=== PATIENT | male | born 1970 | race Caucasian/White ===

== ENCOUNTER 2022-11-18 20:29 | Inpatient (IN) | payer BC, SELFPAY ==
[2022-11-18] VITALS (11 sets, daily range): BP systolic 101–155; BP diastolic 70–104; PULSE 67–78; RESP 14–24; TEMP 36.3; O2SAT 94–100
--- NOTE | ~2022-11-18 | XR_ITS ---
EXAMINATION: XR chest 2V Exam Date/Time: 11/18/2022 21:20 CDT HISTORY: chest pain, BOTH ARMS, [place] IN 2019 Comparison: None available. RESULT: Lines, tubes, and devices: None. Lungs and pleura: Clear. Cardiomediastinal silhouette: Unremarkable. Other: No acute osseous or upper abdominal finding. IMPRESSION: No acute cardiopulmonary process. Reviewed, dictated and finalized at location K.
--- NOTE | 2022-11-18 20:30 | ECG_ITS ---
Measurements Intervals [place] Rate: 79 P: 24 [place]: 144 QRS: -12 QRSD: 96 T: 16 QT: 390 QTc: 447 Interpretive Statements SINUS RHYTHM INFERIOR MYOCARDIAL INFARCTION , PROBABLY OLD COMPARED TO ECG 02/13/2019 07:34:38 NO SIGNIFICANT CHANGES Electronically Signed On 11-19-2022 12:20:09 CDT by Samuel Arellano M.D.
[2022-11-18 20:59] LABS: Basophils Absolute Auto 0.1 K/mm3 (0.0-0.1); Basophils Percent Auto 0.3 % (0.2-1.2); Eosinophils Absolute Auto 0.2 K/mm3 (0-0.3); Eosinophils Percent Auto 0.6 % (0-4.4); Hematocrit 43.2 % (42.0-52.0); Hemoglobin 15.4 g/dL (14.0-18.0); Immature Granulocyte Percent A 0.4 % (0-0.5); Lymphocytes Absolute Auto 10.62 K/mm3 (0.9-3.2); Lymphocytes Percent Auto 45.3 % (18.3-44.2); Mean Corpuscular HGB Conc 35.6 g/dl (32-36); Mean Corpuscular Hemoglobin 32.3 pg (26-34); Mean Corpuscular Volume 90.6 fl (80-100); Mean Platelet Volume 9.5 fl (7.4-10.4); Monocytes Absolute Auto 1.7 K/mm3 (0.1-0.6); Monocytes Percent Auto 7.2 % (2.6-8.5); Neutrophils Absolute Auto 10.8 K/mm3 (1.3-6.7); Neutrophils Percent Auto 46.2 % (45.5-73.1); Platelet Count Result 371 k/mm3 (150-375); Red Blood Count 4.77 M/mm3 (4.6-6.20); Red Cell Distribution Width 12.3 % (11.5-14.5); White Blood Count 23.4 K/mm3 (4.5-10.0)
[2022-11-18 21:12] LABS: Alanine Aminotransferase 37 U/L (6-50); Albumin Level 4.8 g/dL (3.5-5.1); Alkaline Phosphatase 50 U/L (38-126); Anion Gap 14 mmol/L (8-16); Aspartate Amino Transferase 38 U/L (17-59); Bilirubin,Total 0.9 mg/dL (0.2-1.3); Blood Urea Nitrogen 25 mg/dL (9-20); Calcium 9.2 mg/dL (8.4-10.2); Carbon Dioxide 21 mmol/L (22-30); Chloride 103 mmol/L (98-107); Estimated CRCL calculation 110 ml/min; Estimated Glomerular Filt Rate > 60; Glucose 121 mg/dL (65-110); Lipase 123 U/L (23-300); Potassium 3.4 mmol/L (3.4-5.0); Sodium 138 mmol/L (137-145)
[2022-11-18 21:13] LABS: Partial Thromboplastin Time 23.2 SECONDS (22.3-36.8); Prothrombin Time 12.3 Seconds (11.1-14.7)
[2022-11-18 21:20] LABS: Troponin I < 0.012 ng/mL (0.000-0.034)
--- NOTE | 2022-11-18 21:20 | PC.NURSE ---
Patient taken to xray from waiting room.
[2022-11-18] MEDS: NITROGLYCERIN SL 0.4 MG TABLET SUBLINGUAL (23:04)
[2022-11-18] MEDS: MORPHINE SULFATE (*CRX) 4 MG/ML INJ IV PUSH (23:04)
[2022-11-18] MEDS: ASPIRIN 81 MG CHEWABLE TABLET 324 MG PO (23:05)
--- NOTE | 2022-11-18 23:06 | ED.GENADULT ---
HPI - General Adult General Chief complaint: Chest Pain Stated complaint: Chest pain Time Seen by Provider: 11/18/22 22:40 History of Present Illness HPI narrative: Patient 52-year-old gentleman who presents the emergency department with chief complaint of chest pain. Patient reports he has prior history of cardiac disease he is and reports that he has had stents placed before in the past. Patient reports that today he had gone out to eat had a trigger to and then was at home taking his metoprolol and had sudden onset of pain in his chest. The patient does state that it is more sharp and reports that he has radiation down his left arm. Patient reports it does feel similar to whenever he had his MD in the past. Patient reports he took a single nitro at home and had no relief in his symptoms. Related Data Allergies Allergy/AdvReac Type Severity Reaction Status Date / Time No Known Allergies Allergy Unverified 10/06/13 15:48 Review of Systems Review of Systems: A 10 system review of systems was completed on the patient and is negative except for what is stated in the HPI. Nursing and ancillary documentation was reviewed. [facility] Family History Family History Father Family history of heart disease in male family member before age 55 Grandparent Family history of heart disease in male family member before age 55 Diabetes mellitus Social History Social History Smoking status: Never smoker Alcohol intake: current Exam Narrative: GENERAL: Well-appearing, well-nourished, and in no acute distress. HEAD: Normocephalic, atraumatic. EYES: PERRLA and EOMI. ENT: Nares clear, no rhinorrhea or epistaxis. Mucous membranes moist. NECK: Supple. CHEST: Clear to auscultation. No respiratory distress. HEART: Regular rate and rhythm. No murmur heard. Normal peripheral pulses. ABDOMEN: Soft, nontender, nondistended, normal active bowel sounds. EXTREMITIES: Normal range of motion. No edema. SKIN: Warm, dry, no rash. NEURO: No focal deficits. Alert and oriented x3. PSYCH: Normal mood and affect. Course Vital Signs Vital signs: Vital Signs Temperature 36.3 C L 11/18/22 20:37 Pulse Rate 73 11/18/22 20:37 Respiratory Rate 18 11/18/22 20:37 Blood Pressure 101/70 11/18/22 20:37 Pulse Oximetry 98 11/18/22 20:37 Oxygen Delivery Room Air 11/18/22 20:37 Temperature 36.3 C L 11/18/22 20:37 Pulse Rate 68 11/19/22 01:32 Respiratory Rate 21 H 11/19/22 01:32 Blood Pressure 147/86 H 11/19/22 01:32 Pulse Oximetry 96 11/19/22 01:32 Oxygen Delivery Room Air 11/18/22 20:37 Medical Decision Making MDM Narrative Medical decision making narrative: Differential diagnosis includes STEMI, non-STEMI, unstable angina, Initial EKG showed sinus rhythm rate of [address] elevation or ST depression Initial troponin was less than 0.012 3-hour delta troponin is 0.309 Due to this the patient has ruled in for non-STEMI. Laboratory studies otherwise showed significant leukocytosis with a white count of 23.4. Patient does appear to have a baseline elevated white blood cell count from his previous encounters. Patient shows no signs of infection at this time. Chest x-ray showed no focal infiltrate Patient was started on heparin drip also received nitroglycerin in the emergency department as well as pain control. Patient is still having some active pain Case was discussed with both the hospitalist and cardiology who are aware of the patient. Vital Signs Vital Signs: Vital Signs Temperature 36.3 C L 11/18/22 20:37 Pulse Rate 73 11/18/22 20:37 Respiratory Rate 18 11/18/22 20:37 Blood Pressure 101/70 11/18/22 20:37 Pulse Oximetry 98 11/18/22 20:37 Oxygen Delivery Room Air 11/18/22 20:37 Temperature 36.3 C L 11/18/22 20:37 Pulse Rate 68 11/19/22 01:32 Respi
[2022-11-18] MEDS: ONDANSETRON INJ 4 MG/2 ML VIAL IV PUSH (23:28)
[2022-11-19] VITALS (62 sets, daily range): BP systolic 117–166; BP diastolic 65–107; PULSE 61–86; RESP 12–23; TEMP 36.2–37.3; O2SAT 88–99; BMI 37.3
--- NOTE | 2022-11-19 | ECHO_ITS ---
Patient Info Name: Lobito Cassidy Age: 52 years : 1970 Gender: Male Ht: 70 in Wt: 240 lbs BSA: 2.36 m2 HR: 78 bpm BP: 131 / 91 mmHg Heart Rhythm: Sinus Rhythm Technical Quality: Fair Exam Date: 11/19/2022 1:11 PM [facility] Patient Status: Inpatient Admit Date: 11/19/2022 Staff Ordering Physician: Samuel Arellano MD ([email or web address]) Customer Solutions Coordinator: Radha Morgan RDCS Attending Provider: Jordana Kim DO Referring Physician: Adan RITTER; Exam Type: CA echo dop color flow w con Study Info Indications - NSTEMI Complete two-dimensional, color flow and Doppler transthoracic echocardiogram is performed with contrast to opacify the left ventricle and to improve the deliniation of the left ventricle endocardial borders. Summary 1. Left ventricular chamber dimension is normal. 2. Left ventricular systolic function is normal, estimated at 65-70%. 3. Right ventricular systolic function is normal. 4. Left atrial chamber dimension is mildly enlarged. 5. There is mild tricuspid valve regurgitation. Left Ventricle Left ventricular chamber dimension is normal. Left ventricular systolic function is normal, estimated at 65-70%. There is no increased left ventricular wall thickness. Right Ventricle Right ventricular chamber dimension is normal. Right ventricular systolic function is normal. Left Atria Left atrial chamber dimension is mildly enlarged. Right Atria Right atrial chamber dimension is normal. Atrial Septum Intact interatrial septum visualized by color flow imaging. Aortic Valve The aortic valve is not well visualized. There is no aortic valve stenosis. There is no aortic valve regurgitation. There is mild aortic valve calcification. Pulmonic Valve The pulmonic valve is not well visualized. Mitral Valve The mitral valve has normal leaflets. There is no mitral valve stenosis. There is trace mitral valve regurgitation. Tricuspid Valve There is mild tricuspid valve regurgitation. Pericardium/Pleural There is trivial pericardial effusion. Inferior Vena Cava Normal inferior vena cava with >50% collapse upon inspiration consistent with normal right atrial pressure, 3 mmHg. Aorta The aortic root size at the sinus of Valsalva is normal. Left Ventricular Outflow Tract Name Value Normal LVOT 2D LVOT Diameter 2.15 cm LVOT Doppler LVOT Peak Gradient 4 mmHg LVOT Mean Gradient 2 mmHg LVOT VTI 22.13 cm LVOT VTI/AV VTI Ratio 0.67 LVOT Stroke Volume 80.15 ml LVOT CO 15.99 l/min LVOT CI 6.79 L/min/m2 Pulmonic Valve Name Value Normal PV Doppler PV Peak Gradient
[2022-11-19] MEDS: HYDROmorphone HCL INJ (*CRX) 1 MG/ML SYR IV PUSH ×3 (00:17→06:27)
[2022-11-19 01:04] LABS: Troponin I 0.309 ng/mL (0.000-0.034)
[2022-11-19] MEDS: HEPARIN SODIUM 5,000 UNITS/ML VIAL 4000 UNITS IV PUSH ×2 (01:10→08:25)
[2022-11-19] MEDS: NITROGLYCERIN OINTMENT 1 INCH DOSE TRANSDERM ×4 (01:31→23:53)
[2022-11-19] MEDS: HEPARIN SOD/D5W 100 UNITS/ML 25,000 UNITS/250 ML BAG 10 UNITS IV CONT (01:31)
--- NOTE | 2022-11-19 03:06 | ADMGEN ---
This patient, Lobito Cassidy, was admitted to IMU Room 209-01. Patient/family oriented to hospital policies and general routines including ID bracelet, bed and alarms, visiting hours, pain management, procedures, bathroom and other care routines, personal items, smoking policy, room service/diet, and visiting hours. Information on how to activate the Rapid Response Team has been discussed. Patient/Family are encouraged to report perceived risks to care and to ask questions if they do not understand what they are told or what they should do.
--- NOTE | 2022-11-19 03:51 | ECG_ITS ---
Measurements Intervals [place] Rate: 66 P: 38 [place]: 175 QRS: -23 QRSD: 105 T: 25 QT: 435 QTc: 457 Interpretive Statements SINUS RHYTHM BORDERLINE LEFT AXIS DEVIATION [QRS AXIS < -20] INTERPRETATION BASED ON A DEFAULT AGE OF 40 YEARS COMPARED TO ECG 11/18/2022 20:33:13 NO SIGNIFICANT CHANGES Electronically Signed On 11-19-2022 12:23:00 CDT by Samuel Arellano M.D.
[2022-11-19] MEDS: MORPHINE SULFATE (*CRX) 2 MG/ML INJ IV PUSH ×2 (04:26→05:18)
[2022-11-19] MEDS: ONDANSETRON INJ 4 MG/2 ML VIAL IV PUSH ×3 (04:26→17:57)
[2022-11-19] MEDS: METOPROLOL TARTRATE INJ 5 MG/5 ML VIAL 2.5 MG IV PUSH (05:57)
--- NOTE | 2022-11-19 07:06 | PM.IMHP ---
H&P: HPI History of Present Illness Date/Time: 11/19/22 07:06 Chief Complaint: Chest pain ?similar to my last heart attack? Narrative: Patient is a 52-year-old male with a past medical history of essential hypertension, hypercholesterolemia and premature coronary artery disease requiring angioplasty and subsequent placement of a 5 by 38 drug-eluting stent to the mid RCA followed by subsequent appointment of 5 x 13 more proximal stent to the previous placed stent in overlapping fashion January 2019 for STEMI who presented to the ER via private vehicle with chest pain. The patient reports that he and his had just had sexual relations and he suddenly developed severe precordial chest pain that was similar to when he had his prior heart attack. He reports the only difference was that this pain was not quite as intense and it was accompanied by pain down in his forearms bilaterally. The pain is accompanied by diaphoresis, chills and lightheaded sensation. He also reports feeling intermittently flushed in controls engineer the face. He took a nitroglycerin 30 minute prior to arrival to the ER with no relief of his chest pain. The patient reports that he does give muscle aches when he takes his Lipitor but this pain is nothing like his generalized muscle aches. He reports he has not had pain like this since he had his last heart attack. He denies having any orthopnea, paroxysmal nocturnal dyspnea or lower extremity edema. He does snore quite vigorously and does wake himself up with his snoring. He will also bite his tongue in his sleep. He has been noted to have some episodes of apnea by nursing staff in his stop Bang score was 6 indicating is high risk for sleep apnea. He reports that his appetite and his weight has been stable. His metoprolol and atorvastatin had not been filled since July. He states that he always has extra metoprolol and atorvastatin because he has trouble remembering to take his medications consistently. However he has been taking his medications regularly since his last visit to the motor pool driver about a week ago. He reports that the muscle aches he was given from a statins are quite as bad since a decrease his statin dose to 40 mg. However he was told that his cholesterol levels are climbing so he has been trying to be visual in over the last week and eating a more consistent diet. He reports that he has a very physical job and does not have chest pain when he is at work. Echocardiogram in 2019 demonstrated modestly hyponatremic inferior wall with ejection fraction of 55%. Review of Systems Review of Systems: 12 systems were reviewed with pertinent positives and negatives per HPI. Except as documented in the HPI, all other systems were reviewed and are negative. 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), left shoulder STEMI (ST elevation myocardial infarction) (02/2019) Surgical History Surgical History (Updated 11/19/22 @ 07:21 by Jordana Kim DO) History of cardiac catheterization With cardiac angioplasty of the very large RCA 02/2019 with patient having persistent chest pain in the patient had to be taken back to the optical laboratory manager the same day for placement of 2 large drug-eluting stents that were still not quite large enough for the patient's extremely large RCA Family History Family History Father Family history of heart disease in male family member before age 55 Grandparent Family history of heart disease in male family member before age 55 Diabetes mellitus Social History Social History (Updated 11/19/22 @ 07:23 by Jordana Kim DO) Social History: Patient lives in [facility] with his . He denies any tobacco use. He uses marijuana. He drinks about a 12 pack of
[2022-11-19 07:35] LABS: Basophils Percent Auto 0.1 % (0.2-1.2); Hematocrit 42.7 % (42.0-52.0); Hemoglobin 15.1 g/dL (14.0-18.0); Immature Granulocyte Absolute 0.09 K/mm3 (0.00-0.031); Immature Granulocyte Percent A 0.6 % (0-0.5); Lymphocytes Absolute Auto 1.63 K/mm3 (0.9-3.2); Lymphocytes Percent Auto 10.3 % (18.3-44.2); Mean Corpuscular HGB Conc 35.4 g/dl (32-36); Mean Corpuscular Hemoglobin 32.2 pg (26-34); Mean Platelet Volume 9.6 fl (7.4-10.4); Monocytes Absolute Auto 0.5 K/mm3 (0.1-0.6); Monocytes Percent Auto 2.9 % (2.6-8.5); Neutrophils Absolute Auto 13.7 K/mm3 (1.3-6.7); Neutrophils Percent Auto 86.1 % (45.5-73.1); Platelet Count Result 287 k/mm3 (150-375); Red Blood Count 4.69 M/mm3 (4.6-6.20); Red Cell Distribution Width 12.3 % (11.5-14.5); White Blood Count 15.9 K/mm3 (4.5-10.0)
[2022-11-19 07:47] LABS: INR 1.1; Partial Thromboplastin Time 25.5 SECONDS (22.3-36.8); Prothrombin Time 13.5 Seconds (11.1-14.7)
[2022-11-19 07:55] LABS: Anion Gap 9 mmol/L (8-16); Blood Urea Nitrogen 25 mg/dL (9-20); Calcium 8.8 mg/dL (8.4-10.2); Carbon Dioxide 24 mmol/L (22-30); Chloride 105 mmol/L (98-107); Estimated CRCL calculation 138 ml/min; Estimated Glomerular Filt Rate > 60; Glucose 137 mg/dL (65-110); Potassium 3.9 mmol/L (3.4-5.0); Sodium 138 mmol/L (137-145)
[2022-11-19] MEDS: METOPROLOL SUCCINATE EXT REL 25 MG TABCR PO (08:27)
[2022-11-19] MEDS: ASPIRIN 81 MG CHEWABLE TABLET PO (08:27)
[2022-11-19] MEDS: ATORVASTATIN 40 MG TABLET PO (08:27)
--- NOTE | 2022-11-19 10:09 | PM.CNCAR ---
Assessment and Plan Assessment and plan (1) Acute non-ST elevation myocardial infarction (NSTEMI): Code(s): I21.4 - Non-ST elevation (NSTEMI) myocardial infarction Status: Acute (2) Coronary artery disease: Code(s): I25.10 - Atherosclerotic heart disease of [place] coronary artery without angina pectoris Status: Acute (3) Essential hypertension: Code(s): I10 - Essential (primary) hypertension Status: Acute (4) Hyperlipidemia: Qualifiers: Hyperlipidemia type: pure hypercholesterolemia Qualified Code(s): E78.00 - Pure hypercholesterolemia, unspecified Code(s): E78.5 - Hyperlipidemia, unspecified Status: Acute Plan Loaded with ASA 324mg. Continue with ASA 81mg once daily. Loaded with 600mg of Plavix this morning. Continue with 75mg once daily of Plavix. Increase his statin from 40mg to 80mg. Continue with beta aspen. Cardiac cath this AM. Further recommendations pending results of cardiac cath. History of Present Illness History of Present Illness Consult date/time: 11/19/22 10:09 Requesting physician: Jersey Anaya MD Consult reason: chest pain and Other (NSTEMI) Reason For Visit: nstemi Narrative: We are consulted for NSTEMI. This is a 52-year-old male with a history of coronary artery disease with a STEMI in 01/2019 s/p PCI to the RCA with BELKIS x 1 who presented to [place] [facility] with chest pain. Chest pain began around 8PM on 11/18/2022. Admitted to the hospital with an NSTEMI. Had radiation of the pain down to his arm. EKG without ischemic changes. Initial troponin negative. However, repeat troponins 0.309 --> 1.730 --> 5.7. Patient reports his chest pain improved with medical management with pain medications. Has mild chest pain this morning. Hemodynamically stable. Patient supposed to be on Brilinta as an outpatient, however, states he stopped it several days ago. Has been taking ASA but misses a dose occasionally. Follows with Dr. La in clinic. Last seen a week ago. 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), left shoulder STEMI (ST elevation myocardial infarction) (02/2019) Surgical History Surgical History History of cardiac catheterization With cardiac angioplasty of the very large RCA 02/2019 with patient having persistent chest pain in the patient had to be taken back to the chemical lab supervisor the same day for placement of 2 large drug-eluting stents that were still not quite large enough for the patient's extremely large RCA Family History Family History Father Family history of heart disease in male family member before age 55 Grandparent Family history of heart disease in male family member before age 55 Diabetes mellitus Social History Social History Social History: Patient lives in [facility] with his . He denies any tobacco use. He uses marijuana. He drinks about a 12 pack of alcohol a week. 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 Code status: Full code Surrogate decision maker: Maria Teresa () Smoking status: Never smoker Second hand tobacco smoke exposure: No Alcohol intake: current Drinks per week: 2 Substance use: current Substance use type: marijuana Last use: 11/18/22 Lack of Transportation: No Lack of Food: Never True Current Housing: I Have Housing Concerned About Future Housing: No Difficulty Paying Gas/Electric Bills: No Difficulty Paying for Meds: No Currently Unemployed: No Education: High School Diploma/GED Difficulty w/ Chi
--- NOTE | 2022-11-19 10:23 | WPDMODSED ---
Moderate Sedation Note-Pt Data Patient Data Diagnosis: NSTEMI Present Complaint: Chest pain Procedure to be performed/Plan: Coronary angiography, LHC, +/- PCI Allergies Allergy/AdvReac Type Severity Reaction Status Date / Time No Known Allergies Allergy Unverified 10/06/13 15:48 Home Medications Medication Instructions Recorded Confirmed Type aspirin 81 mg tablet,delayed 81 mg PO DAILY 11/19/22 11/19/22 History release atorvastatin 40 mg tablet 40 mg PO DAILY 11/19/22 11/19/22 History metoprolol succinate 25 mg 25 mg PO DAILY 11/19/22 11/19/22 History tablet,extended release 24 hr Current Medications: Active Medications Aspirin (Aspirin 81 Mg Chewable Tablet) 81 mg PO DAILY@0800 [facility] Last Admin: 11/19/22 08:27 Dose: 81 mg Aspirin (Aspirin 81 Mg Enteric Tablet) 81 mg PO DAILY [facility] Last Admin: 11/19/22 08:19 Dose: Not Given Atorvastatin Calcium (Atorvastatin 40 Mg Tablet) 80 mg PO DAILY [facility] Heparin Sodium (Porcine) (Heparin Sodium 5,000 Units/Ml Vial) 4,000 units IV PUSH PRN PRN PRN Reason: aPTT less than 55 seconds Last Admin: 11/19/22 08:25 Dose: 4,000 units Heparin Sodium (Porcine) (Heparin Sodium 5,000 Units/Ml Vial) 3,500 units IV PUSH PRN PRN PRN Reason: aPTT 55 - 70 seconds Heparin Sodium/Dextrose (Heparin Sodium/D5w 100 Units/Ml) 25,000 units in 250 mls @ 14 mls/hr IV CONT .[id number] [facility]; Protocol Last Titration: 11/19/22 08:23 Dose: 1,400 units/hr, 14 mls/hr Metoprolol Succinate (Metoprolol Succinate Ext Rel 25 Mg Tabcr) 25 mg PO DAILY [facility] Last Admin: 11/19/22 08:27 Dose: 25 mg Morphine Sulfate (Morphine Sulfate (*Crx) 4 Mg/Ml Inj) 4 mg IV PUSH Q2H PRN PRN Reason: Chest Pain Nitroglycerin (Nitroglycerin Ointment 1 Inch Dose) 1 inch TRANSDERM Q6HR [facility] Last Admin: 11/19/22 05:57 Dose: 1 inch Ondansetron HCl (Ondansetron Inj 4 Mg/2 Ml Vial) 4 mg IV PUSH Q6H PRN PRN Reason: Nausea And Vomiting Last Admin: 11/19/22 04:26 Dose: 4 mg Sedation/Anesthesia: No previous sedation/anesthesia problems (including family history). 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 Separation of muscle (nontraumatic), left shoulder STEMI (ST elevation myocardial infarction) (02/2019) Surgical History Surgical History History of cardiac catheterization With cardiac angioplasty of the very large RCA 02/2019 with patient having persistent chest pain in the patient had to be taken back to the cath laboratory technician the same day for placement of 2 large drug-eluting stents that were still not quite large enough for the patient's extremely large RCA Family History Family History Father Family history of heart disease in male family member before age 55 Grandparent Family history of heart disease in male family member before age 55 Diabetes mellitus Social History Social History Social History: Patient lives in [facility] with his . He denies any tobacco use. He uses marijuana. He drinks about a 12 pack of alcohol a week. 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 Code status: Full code Surrogate decision maker: Maria Teresa () Smoking status: Never smoker Second hand tobacco smoke exposure: No Alcohol intake: current Drinks per week: 2 Substance use: current Substance use type: marijuana Last use: 11/18/22 Lack of Transportation: No Lack of Food: Never True Current Housing: I Have Housing Concerned About Future Housing: No Difficulty Paying Gas/Electric Bills: No Difficulty Paying for Meds: No Currently Unemployed: No Education: High School Diploma/GED Difficulty w/ Childcare or Family Care: No Spiritual care concerns: No Mod Sed
--- NOTE | 2022-11-19 10:26 | WPDCARDPROC ---
Cardiac Cath Procedure Note Date of procedure:: 11/19/22 Performing physician:: CATHETERIZATION LABORATORY REPORT Procedure Date: 11/19/2022 Planning Lead: Samuel Arellano M.D., [facility]? Referring Physician: Samuel Arellano M.D. ? Anesthesia: Versed and Fentanyl were ordered and given in my presence at 08:59, procedure ended at 10:04. Supervision of nurse monitored moderate sedation with Versed and Fentanyl was provided for 65 minutes. Total of Versed 2mg and Fentanyl 50mcg were administered by the Construction Job Titles RN Klaudia Rowley. Pre-op Diagnosis: NSTEMI Post-op Diagnosis: Occluded OM-1 vessel. Unsuccessful attempt at reopening the vessel despite multiple balloon inflations. Widely patent RCA stents Non-obstructive disease of the LAD that is angiographically unchanged compared to prior cath from 2018 Procedure(s): 1. Moderate sedation 2. Ultrasound-guided access of the right radial artery 3. Coronary angiography 4. Balloon angioplasty of the OM-1 vessel, unable to reopen the vessel. Access Site: Right radial artery Brief History and Clinical Indications: Patient is a 52-year-old male who is referred for cardiac cath for NSTEMI. All risks, benefits and alternatives to left heart catheterization with or without percutaneous coronary intervention was discussed at length with the patient. Risk of complications including but not limited to bleeding, infection, arrhythmia, stroke, worsening kidney function, blood loss, groin hematoma, limb loss, emergency coronary artery bypass grafting, and even were discussed with the patient and all questions were answered. The patient understood and wished to proceed. Time out called, patient name, date of , medical record number, allergies, procedure performed, identify Planning Lead, patient and staff member concurred with accurate data, procedure carried on. Findings: LEFT HEART CATHETERIZATION FINDINGS: 1. Left main: Large caliber vessel. The left main has an ostial 20% stenosis, which is angiographically unchanged compared to prior cath. 2. Left anterior descending: The LAD is a large caliber vessel with diffuse 20% disease in its proximal-mid portion. The mid LAD has mild 40-50% stenosis. Remainder of the LAD has mild luminal irregularities. The diagonal vessels are without any significant obstructive angiographic disease. There is a large caliber Ramus without any obstructive disease. 3. Left circumflex: The proximal LCX has mild diffuse disease. The AV groove LCX is diminutive. The OM vessel is completely occluded in its proximal section. 4. Right coronary artery: The RCA is the dominant vessel. Widely patent stents are seen in the proximal-mid RCA. Diffuse mild disease in the RCA. The RPLV is a large caliber vessel with mild luminal irregularities. The RPDA is a large caliber vessel with a mild 30-40% stenosis in its mid portion. Description of Procedure: Informed consent signed and placed in the chart. Patient transferred to greens laborer room. Prepped and draped in usual sterile fashion. 2% lidocaine injected subcutaneously in right wrist area. 22-gauge venipuncture catheter used to access the right radial artery with the Seldinger technique. 6-FR slender sheath placed in right radial artery. Nitroglycerine and Verapamil were given intraarterial through the sheath. Versacore wire advanced under fluoroscopy 5F Tig 4 diagnostic catheter engaged Left Main Coronary Artery. 5F Tig 4 diagnostic catheter engaged Right Coronary Artery Multiple orthogonal angiogram obtained and reviewed Decision made to proceed with PCI of the OM. Angiomax used for anticoagulation. 6F CLS 3.0 guide catheter was used to intubate the LM. The LCX was a difficult vessel to wire due to the angulation of its takeoff. 0.014 [place] coronary wire was eventually advanced into the distal OM. Balloon angioplasty done with a 2.0mm x 15mm balloon. Despite multiple balloon inflations up to 2.3-2.5mm, unable to o
[2022-11-19] MEDS: EPTIFIBATIDE 0.75 MG/ML 75 MG/100 ML VIAL 18.88 MG IV CONT ×3 (10:30→20:11)
[2022-11-19] MEDS: MORPHINE SULFATE (*CRX) 4 MG/ML INJ IV PUSH ×5 (11:10→21:11)
[2022-11-19 11:36] LABS: Hemoglobin A1C 5.4 % (<5.7)
[2022-11-19 11:40] LABS: Cholesterol 132 mg/dL (0-200); HDL Direct 36 mg/dL; Triglycerides 89 mg/dL (<150)
[2022-11-19 11:51] LABS: LDL Cholesterol Direct 75 mg/dL
[2022-11-19] MEDS: SODIUM CHLORIDE 0.9% IV 1,000 ML 125 ML IV CONT (13:45)
[2022-11-19] MEDS: PERFLUTREN LIPID MICROSPHERES 1.5 ML VIAL DILUTED TO 10 ML TOTAL VOLUME IV PUSH (13:50)
--- NOTE | 2022-11-19 14:52 | PM.IMPN ---
Progress Note: A&P Assessment and Plan (1) Acute non-ST elevation myocardial infarction (NSTEMI): Code(s): I21.4 - Non-ST elevation (NSTEMI) myocardial infarction Status: Acute Assessment and Plan: The patient is is having persistent chest pain with elevated troponins despite nitropaste, morphine and Dilaudid. The patient did report that metoprolol given IV 2.5 mg seemed to help his pain somewhat. He reports his pain is still a 4/10 in intensity but better than his 9-10/10 pain that he was having prior to arrival. Cardiology was contacted regarding the patient's persistent pain and nursing staff tells me that the patient is likely to go to cardiac catheterization technologist this morning. Heart cath shows - Occluded OM-1 vessel. Unsuccessful attempt at reopening the vessel despite multiple balloon inflations. Widely patent RCA stents Non-obstructive disease of the LAD that is angiographically unchanged compared to prior cath from 2019 Pt had urgent heart cath this am see results above D/ W cardiology continue with medical treatment Integrilin drip for 18 hours. Morphine for pain, and Lopressor. continue to watch in imu for any further chest pains (2) Hyperlipidemia: Qualifiers: Hyperlipidemia type: pure hypercholesterolemia Qualified Code(s): E78.00 - Pure hypercholesterolemia, unspecified Code(s): E78.5 - Hyperlipidemia, unspecified Status: Acute Assessment and Plan: Continue Lipitor 40 mg daily. (3) Essential hypertension: Code(s): I10 - Essential (primary) hypertension Status: Acute Assessment and Plan: Continue home metoprolol. (4) Snoring: Code(s): R06.83 - Snoring Status: Acute Assessment and Plan: Would benefit from outpatient polysomnogram. Plan Patient has been admitted as inpatient status. He will require greater than 2 midnight stay for stabilization of his cardiac ischemia. Subjective Date/time seen: 11/19/22 14:52 52-year-old male with a past medical history of essential hypertension, hypercholesterolemia and premature coronary artery disease requiring angioplasty and subsequent placement of a 5 by 38 drug-eluting stent to the mid RCA followed by subsequent appointment of 5 x 13 more proximal stent to the previous placed stent in overlapping fashion January 2019 for STEMI who presented to the ER via private vehicle with chest pain.? The patient reports that he and his had just had sexual relations and he suddenly developed severe precordial chest pain that was similar to when he had his prior heart attack. Pt admitted with NSTEMI PT seen by cardiology had urgent Cardiac cath showing Occluded OM-1 vessel. Unsuccessful attempt at reopening the vessel despite multiple balloon inflations. Widely patent RCA stents Non-obstructive disease of the LAD that is angiographically unchanged compared to prior cath from 2019 Pt seen in the room, resting on Integrilin drip, denies any chest pain currently Review of Systems Review of Systems: No Chest pain Exam Narrative: Obese Const: Other: Alert awake HENMT: Other: Mucous membranes are tacky, markedly crowded posterior oropharynx no oral pharyngeal erythema Resp: Other: Clear to auscultation bilaterally Cardio: Other: Regular rate, regular rhythm, 2+ bilateral radial pedal pulses GI: Other: Soft, nontender, nondistended, positive bowel sounds Skin: Other: Extensive tattoos across bilateral arms Neuro: Other: Alert oriented, speech is clear, no facial asymmetry, no localizing neurologic deficits noted during conversation Extrem: Other: No clubbing, cyanosis or edema Objective Data Vital Signs Vital Signs: Vital Signs - 24 hr 11/18/22 20:37 11/18/22 22:32 11/18/22 22:33 Temperature 36.3 C L Pulse Rate 73 78 Pulse Rate [Bilateral Pedal (Dorsalis Pedis)] Respiratory Rate 18 24 H Blood Pressure 101/70 154/104 H Pulse Oximetry 98 100 99 Oxygen
[2022-11-19] MEDS: METOCLOPRAMIDE HCL INJ 10 MG/2 ML VIAL IV PUSH (20:53)
[2022-11-19] MEDS: FAMOTIDINE 20 MG/2 ML VIAL IV PUSH (21:41)
[2022-11-20] VITALS (7 sets, daily range): BP systolic 118–126; BP diastolic 72–78; PULSE 65–74; RESP 14–20; TEMP 36.6–36.7; O2SAT 93–98
[2022-11-20] MEDS: MORPHINE SULFATE (*CRX) 4 MG/ML INJ IV PUSH ×3 (01:34→08:35)
[2022-11-20] MEDS: EPTIFIBATIDE 0.75 MG/ML 75 MG/100 ML VIAL 18.88 MG IV CONT (01:34)
[2022-11-20 05:21] LABS: Basophils Percent Auto 0.2 % (0.2-1.2); Eosinophils Percent Auto 0.1 % (0-4.4); Hematocrit 38.9 % (42.0-52.0); Hemoglobin 13.9 g/dL (14.0-18.0); Immature Granulocyte Absolute 0.12 K/mm3 (0.00-0.031); Immature Granulocyte Percent A 0.6 % (0-0.5); Lymphocytes Absolute Auto 3.17 K/mm3 (0.9-3.2); Lymphocytes Percent Auto 15.9 % (18.3-44.2); Mean Corpuscular HGB Conc 35.7 g/dl (32-36); Mean Corpuscular Hemoglobin 32.3 pg (26-34); Mean Corpuscular Volume 90.3 fl (80-100); Mean Platelet Volume 9.7 fl (7.4-10.4); Monocytes Absolute Auto 1.8 K/mm3 (0.1-0.6); Monocytes Percent Auto 8.9 % (2.6-8.5); Neutrophils Absolute Auto 14.8 K/mm3 (1.3-6.7); Neutrophils Percent Auto 74.3 % (45.5-73.1); Platelet Count Result 270 k/mm3 (150-375); Red Blood Count 4.31 M/mm3 (4.6-6.20); Red Cell Distribution Width 12.4 % (11.5-14.5); White Blood Count 19.9 K/mm3 (4.5-10.0)
[2022-11-20] MEDS: NITROGLYCERIN OINTMENT 1 INCH DOSE TRANSDERM (05:56)
[2022-11-20] MEDS: METOCLOPRAMIDE HCL INJ 10 MG/2 ML VIAL 5 MG IV PUSH (08:34)
[2022-11-20] MEDS: METOPROLOL SUCCINATE EXT REL 50 MG TABCR PO (08:36)
[2022-11-20] MEDS: CLOPIDOGREL BISULFATE 75 MG TABLET PO (08:36)
[2022-11-20] MEDS: FAMOTIDINE 20 MG/2 ML VIAL IV PUSH (08:36)
[2022-11-20] MEDS: ATORVASTATIN 40 MG TABLET 80 MG PO (08:36)
[2022-11-20] MEDS: ASPIRIN 81 MG ENTERIC TABLET PO (08:47)
--- NOTE | 2022-11-20 11:33 | PM.PNCARD ---
Progress Note: A&P Assessment and Plan (1) Acute non-ST elevation myocardial infarction (NSTEMI): Code(s): I21.4 - Non-ST elevation (NSTEMI) myocardial infarction Status: Acute (2) Hyperlipidemia: Qualifiers: Hyperlipidemia type: pure hypercholesterolemia Qualified Code(s): E78.00 - Pure hypercholesterolemia, unspecified Code(s): E78.5 - Hyperlipidemia, unspecified Status: Acute (3) Essential hypertension: Code(s): I10 - Essential (primary) hypertension Status: Acute (4) Coronary artery disease: Code(s): I25.10 - Atherosclerotic heart disease of [place] coronary artery without angina pectoris Status: Acute Plan Cardiac cath showed: Occluded OM-1 vessel. Unsuccessful attempt at reopening the vessel despite multiple balloon inflations. Widely patent RCA stents Non-obstructive disease of the LAD that is angiographically unchanged compared to prior cath from 2019 Treated patient medically with Integrilin drip for 18 hours, now completed. Echocardiogram showed LVEF 65-70%, no significant valvular disease. Continue ASA 81mg once daily, Plavix 75mg once daily. Will need DAPT for at least 1 year. Continue Atorvastatin 80mg QD. Continue Toprol 50mg QD. Okay for patient to be discharged home today from my standpoint. Patient's case was discussed with Hospitalist, Dr. Mojica. Subjective Date/time seen: 11/20/22 11:33 Interval history: Reason for visit: NSTEMI HPI: This is a 52-year-old male with a history of coronary artery disease with a STEMI in 01/2019 s/p PCI to the RCA with BELKIS x 1 who presented to [place] ER with chest pain. Chest pain began around 8PM on 11/18/2022. Admitted to the hospital with an NSTEMI. Had radiation of the pain down to his arm. EKG without ischemic changes. Initial troponin negative. However, repeat troponins 0.309 --> 1.730 --> 5.7. Patient reports his chest pain improved with medical management with pain medications. Has mild chest pain this morning. Hemodynamically stable. Patient supposed to be on Brilinta as an outpatient, however, states he stopped it several days ago. Has been taking ASA but misses a dose occasionally. Follows with Dr. La in clinic. Last seen a week ago. Date of service 11/20: No acute events overnight. Feels better. Review of Systems Review of Systems: 8 point ROS obtained. Negative, unless stated in HPI. Exam Const: General: comfortable and no acute distress HENMT: Mouth: Yes moist mucous membranes Eyes: General: appearance normal, both eyes and all related structures Sclera: sclerae normal Neck: Neck: supple Resp: Effort & Inspection: normal respiratory effort Auscultation: clear to auscultation bilaterally Cardio: Rate: regular rate Rhythm: regular rhythm Heart sounds: no murmurs GI: GI Palp: Yes Soft to palpation Skin: General skin exam: normal color Neuro: Speech: normal speech Extrem: General: normal to inspection Psych: Mental Status: mental status grossly normal Affect: normal affect Objective Data Vital Signs Vital Signs: Vital Signs - 24 hr 11/19/22 11:45 11/19/22 11:45 11/19/22 12:00 Temperature Pulse Rate 86 70 Pulse Rate [Bilateral Pedal (Dorsalis Pedis)] 86 Respiratory Rate 15 16 Blood Pressure 153/93 H 150/100 H Pulse Oximetry 96 98 Oxygen Delivery Nasal Cannula Nasal Cannula Oxygen Flow Rate 2 2 11/19/22 12:00 11/19/22 12:15 11/19/22 12:15 Temperature Pulse Rate 70 Pulse Rate [Bilateral Pedal (Dorsalis Pedis)] 70 70 Respiratory Rate 15 Blood Pressure 151/85 H Pulse Oximetry 96 Oxygen Delivery Nasal Cannula Oxygen Flow Rate 2 11/19/22 12:45 11/19/22 12:45 11/19/22 13:07 Temperature Pulse Rate 71 Pulse Rate [Bilateral Pedal (Dorsalis Pedis)] 71 71 Respiratory Rate 15 Blood Pressure 158/89 H Pulse Oximetry 96 Oxygen Delivery Nasal Cannula Oxygen Flow Rate 2 11/19/22 13:07 11/19/22 13:15 11/19/22 13:1
--- NOTE | 2022-11-20 11:39 | PM.DS ---
DS: Admitting Diagnosis Discharge Date 11/20/22 Admitting Diagnosis Chest pain/NSTEMI DS: Discharge Diagnosis Discharge Diagnosis (1) Coronary artery disease: Code(s): I25.10 - Atherosclerotic heart disease of [place] coronary artery without angina pectoris Status: Acute (2) Essential hypertension: Code(s): I10 - Essential (primary) hypertension Status: Acute (3) Hyperlipidemia: Qualifiers: Hyperlipidemia type: pure hypercholesterolemia Qualified Code(s): E78.00 - Pure hypercholesterolemia, unspecified Code(s): E78.5 - Hyperlipidemia, unspecified Status: Acute (4) Acute non-ST elevation myocardial infarction (NSTEMI): Code(s): I21.4 - Non-ST elevation (NSTEMI) myocardial infarction Status: Acute DS: Summary Hospital Course Reason for hospitalization: Chest Pain/NSTEMI Hospital Course: 52-year-old male with a past medical history of essential hypertension, hypercholesterolemia and premature coronary artery disease requiring angioplasty and subsequent placement of a 5 drug-eluting stent to the mid RCA followed by subsequent appointment of 5 x 13 more proximal stent to the previous placed stent in overlapping fashion January 2019 for STEMI who presented to the ER via private vehicle with chest pain.?Found to be in NSTEMI. Cardiology was consulted, underwent cardiac cath, Cardiac cath showed:Occluded OM-1 vessel. Unsuccessful attempt at reopening the vessel despite multiple balloon inflations. Widely patent RCA stents,Non-obstructive disease of the LAD that is angiographically unchanged compared to prior cath from 2019. Plan to continue with medical management with DAPT along with statin and BB. Discharged home in stable condition. Status at Discharge Functional status at discharge: independent ambulation Overall status at discharge: patient is back to baseline Time Spent with Patient Time attestation: Total time spent providing and/or coordinating discharge services: Time spent: Greater than 30 minutes Exam Narrative: Narrative: Obese Const: Other: Alert awake HEENT: Other: Mucous membranes are tacky, markedly crowded posterior oropharynx no oral pharyngeal erythema Resp: Other: Clear to auscultation bilaterally Cardio: Other: Regular rate, regular rhythm, 2+ bilateral radial pedal pulses GI: Other: Soft, nontender, nondistended, positive bowel sounds Skin: Other: Extensive tattoos across bilateral arms Neuro: Other: Alert oriented, speech is clear, no facial asymmetry, no localizing neurologic deficits noted during conversation Extremity: Other: No clubbing, cyanosis or edema DS: Data Data Completed and Pending Labs on day of discharge: Labs from last 24 hours 11/20/22 11/19/22 04:41 07:20 WBC 19.9 H RBC 4.31 L Hgb 13.9 L Hct 38.9 L MCV 90.3 MCH 32.3 MCHC 35.7 RDW 12.4 Plt Count 270 MPV 9.7 Immature Gran % (Auto) 0.6 H Neut % (Auto) 74.3 H Lymph % (Auto) 15.9 L [place] % (Auto) 8.9 H Eos % (Auto) 0.1 Baso % (Auto) 0.2 Lymph # (Auto) 3.17 [place] # (Auto) 1.8 H Eos # (Auto) 0.0 Baso # (Auto) 0.0 Abs Immat Gran (auto) 0.12 H Absolute Neuts (auto) 14.8 H Absolute Nucleated RBC 0.0 Nucleated RBC % 0.0 Triglycerides 89 Cholesterol 132 LDL Cholesterol Direct 75 HDL Direct 36 TSH 1.590 Discharge Plan Discharge Attending physician on discharge: Tiffany Mojica Consulting providers: Tania Olmos Discharging Clinician: Tiffany Mojica Anticipated Discharge Date/Time: 11/20/22 11:18 Patient Disposition: Home, Self-Care Activity: as tolerated Diet: heart healthy Patient Instructions: Antibiotic Form Stand Alone Forms: General Discharge Information Follow-up/Referrals: Tania Olmos DO [Physician] - 1 Week Devan Jordan MD [Primary Care Provider] - 2 Weeks Discharge Medications: New clopidogrel 75 mg Tablet 75 mg PO QA Qty: 9
== END 2022-11-20 12:31 | disposition home or self-care (01) | DRG 251 ==
LOC: ANHED 11-19 01:41 → ANHIMU 11-19 02:19
PROVIDERS: Internal Medicine; Admitting Provider Internal Medicine; Emergency Provider Emergency Medicine; PCP Family Medicine; Visit Provider Internal Medicine
PROC: 4A023N7 Measurement of Cardiac Sampling and Pressure, Left Heart, Percutaneous Approach (ICD-10-PCS; CPT 93454; principal; 2022-11-19 08:30)
PROC: 02703ZZ Dilation of Coronary Artery, One Artery, Percutaneous Approach (ICD-10-PCS; CPT 92920; 2022-11-19 08:30)
DX: I21.4 Non-ST elevation (NSTEMI) myocardial infarction (principal); I25.10 Atherosclerotic heart disease of native coronary artery without angina pectoris; E78.5 Hyperlipidemia, unspecified; I10 Essential (primary) hypertension; D72.829 Elevated white blood cell count, unspecified; G47.33 Obstructive sleep apnea (adult) (pediatric); E66.9 Obesity, unspecified; Z68.37 Body mass index [BMI] 37.0-37.9, adult; Z95.5 Presence of coronary angioplasty implant and graft; I25.2 Old myocardial infarction
CPT/HCPCS: 36415; 71046; 80048; 80053; 80061; 83036; 83690; 84443; 84484; 85025; 85610; 85730; 92920; 93005; 93454; 96374; 96375; 99285; A9270; C1725; C1769; C1887; C1894; C8929; J0583; J1170; J1327; J1644; J2250; J2270; J2405; J2765; J3010; J7030; J7040; Q9957

== ENCOUNTER 2023-03-14 16:30 | Outpatient (RCR) | payer BC, SELFPAY ==
[2023-01-17 17:48] VITALS: PULSE 69
== END 2023-04-10 16:44 | disposition home or self-care (01) ==
LOC: ANHCPREHAB 16:30
PROVIDERS: PCP Family Medicine; Visit Provider Family Medicine
DX: I25.2 Old myocardial infarction (principal)
CPT/HCPCS: 93798